=== PATIENT | male | born 1995 | race Caucasian/White ===

== ENCOUNTER 2022-05-06 22:44 | Emergency (ER) | payer BC, SELFPAY ==
--- NOTE | ~2022-05-06 | CT_ITS ---
EXAMINATION: CT abdomen pelvis w con DATE: 05/07/2022 05:17 INDICATION: Right upper quadrant abdominal pain. Hepatic mass. TECHNIQUE: Computed tomography (CT) of the abdomen and pelvis was performed with 100 mL Omnipaque-350 intravenous contrast. Automated exposure control and iterative reconstruction technique were employe d. The dose-length product was 1465.00 mGy-cm. COMPARISON: 05/07/2022 at 2:48 AM FINDINGS: Lung bases are clear. Heart size is normal. No pericardial or pleural effusion. 1.8 cm low-attenuatio n likely hepatic cyst near the confluence of the patent hepatic veins and inferior vena cava. Gallbla dder, spleen, pancreas and bilateral adrenal glands are normal. 3 mm stone at the right ureteropelvic junction with mild right hydronephrosis. No other urolithiasis. There are couple bilateral nonenhanc ing renal cysts measuring up to 1 cm in maximal diameter at the right kidney. Bowels including the ap pendix are normal. Bladder is normal. No free intraperitoneal gas or fluid. No pathologically enlarge d abdominal or pelvic lymphadenopathy. Lumbar and lower thoracic spondylosis bone island at the intra trochanteric right femur. IMPRESSION: 1. 3 mm at least partially obstructing stone at the right ureteropelvic junction with mild right hydr onephrosis. 2. 1.8 cm at the hepatic cyst near the confluence of the patent hepatic veins and inferior vena cava. Reviewed, dictated and finalized at location A. IMPRESSION: 1. 3 mm at least partially obstructing stone at the right ureteropelvic junctio n with mild right hydronephrosis. 2. 1.8 cm at the hepatic cyst near the confluence of the patent hepatic veins a nd inferior vena cava.
--- NOTE | ~2022-05-06 | CT_ITS ---
EXAMINATION: CT abdomen pelvis wo con DATE: 05/07/2022 03:04 INDICATION: Right flank pain. Right abdominal pain. TECHNIQUE: Computed tomography (CT) of the abdomen and pelvis was performed without intravenous contr ast. Automated exposure control and iterative reconstruction technique were employed. The dose-length product was 656.92 mGy-cm. COMPARISON: None FINDINGS: Lung bases are clear. Arch size is normal. No pericardial or pleural effusion. 1.9 cm fluid attenuati on cyst at the dome of the liver near the confluence of the hepatic veins and inferior vena cava. Gal lbladder, spleen, pancreas, bilateral adrenal glands and left kidney are normal. At least partially o bstructing 3 mm stone at the right ureteropelvic junction with mild right hydronephrosis. Bowels incl uding the appendix are normal. Bladder is normal. No free intraperitoneal gas or fluid. No pathologic ally enlarged abdominal or pelvic lymphadenopathy. Mild thoracolumbar spondylosis. Bone island at the proximal right femur. IMPRESSION: 1. At least partially obstructing 3 mm stone at the right ureteropelvic junction with mild right hydr onephrosis. Reviewed, dictated and finalized at location A. IMPRESSION: 1. At least partially obstructing 3 mm stone at the right ureteropelvic junctio n with mild right hydronephrosis.
[2022-05-06 22:52] VITALS: BP 154/78; PULSE 68; RESP 20; TEMP 36.9; O2SAT 100
[2022-05-07 01:44] LABS: Add Urine Microscopic? YES; Appearance Urine Cloudy (Clear); Bacteria Urine Trace /hpf; Bilirubin Urine Negative (Negative); Blood Urine 3+ (Negative); Calcium Oxalate Crystals Urine Present /hpf; Color Urine Amber (Yellow); Glucose Urine UA Negative (Negative); Ketones Urine Negative (Negative); Leukocyte Esterase Ur Negative LEU/UL (Negative); Mucus Urine Heavy /lpf; Nitrate Urine Negative (Negative); Protein Urine 1+ mg/dL (Negative); RBC Urine >75 /hpf (0-2); Specific Grav Ur 1.025 (1.001-1.035)
--- NOTE | 2022-05-07 01:50 | ED.BACK ---
HPI - Back Pain/Injury General Chief Complaint: Back Pain/Injury <Zhen George APRN - Last Filed: 05/07/22 01:54> Stated Complaint: back pain <Zhen George APRN - Last Filed: 05/07/22 01:54> Time Seen by Provider: 05/07/22 00:45 <Zhen George APRN - Last Filed: 05/07/22 01:54> Source: patient <Zhen George APRN - Last Filed: 05/07/22 01:54> Mode of arrival: ambulatory <Zhen George APRN - Last Filed: 05/07/22 01:54> Limitations: no limitations <Zhen George APRN - Last Filed: 05/07/22 01:54> History of Present Illness HPI Narrative: Presents complaints of right flank pain that radiates into right lower abdomen x1 hour. Reports history of kidney stones but states that the pain is not as severe as prior kidney stones. Denies fever, nausea, vomiting or other symptoms at this time. States urinating without difficulty but urine is darker than usual. <Zhen George APRN - Last Filed: 05/07/22 01:54> Related Data Allergies/Adverse Reactions: Allergies Allergy/AdvReac Type Severity Reaction Status Date / Time No Known Allergies Allergy Verified 05/07/22 06:58 <Zhen George APRN - Last Filed: 05/07/22 01:54> Review of Systems Review of Systems: CONSTITUTIONAL: Denies fever, chills, or sweats. EYES: Denies visual changes, redness, or discharge. ENT: Denies rhinorrhea, congestion, sore throat, or otalgia. CARDIOVASCULAR: Denies chest pain, palpitations, or edema. RESPIRATORY: Denies cough or dyspnea. GASTROINTESTINAL: Right flank pain with radiation into right lower abdomen. Denies nausea, vomiting. GENITOURINARY: Denies dysuria or hematuria. SKIN: Denies rash or itching. MUSCULOSKELETAL: Denies back pain, joint pain, or myalgia. NEUROLOGIC: Denies headache, numbness, or weakness. PSYCHIATRIC: Denies anxiety or depression. <Zhen George APRN - Last Filed: 05/07/22 01:54> [facility] Past Medical History Medical History: Medical History (Updated 05/07/22 @ 06:59 by Hiro Montoya MD) Kidney stone <Zhen George, DISTRIBUTION COLLECTION OPERATOR - Last Filed: 05/07/22 01:54> Exam Narrative: GENERAL: Well-appearing, well-nourished, and in no acute distress. HEAD: Normocephalic, atraumatic. EYES: PERRLA and EOMI. ENT: Nares clear, no rhinorrhea or epistaxis. Mucous membranes moist. NECK: Supple. CHEST: Clear to auscultation. No respiratory distress. HEART: Regular rate and rhythm. No murmur heard. Normal peripheral pulses. ABDOMEN: Right flank, right lower back order clerk to palpation, mildly. Slightly tender to palpation right lower quadrant abdomen. EXTREMITIES: Normal range of motion. No edema. SKIN: Warm, dry, no rash. NEURO: No focal deficits. Alert and oriented x3. PSYCH: Normal mood and affect. <Zhen George, DISTRIBUTION COLLECTION OPERATOR - Last Filed: 05/07/22 01:54> Course Course Emergency Course: 06:56 - Patient signed out to me by KRISTA George. Noncontrast CT shows a 3 mm stone and is concerning for a hepatic cyst versus potential blood clot. Radiology recommends a CT with contrast. CT with contrast not concerning for blood clot of the liver. Will discharge with tamsulosin and urology follow-up. Discussed return emergency precautions including signs/symptoms of intractable vomiting and acute abdomen. The patient voiced understanding is comfortable with the plan. All questions answered to his satisfaction. <Hiro Montoya MD - Last Filed: 05/08/22 02:41> Vital Signs Vital signs: Vital Signs Temperature 98.4 F 05/06/22 22:52 Pulse Rate 68 05/06/22 22:52 Respiratory Rate 20 05/06/22 22:52 Blood Pressure 154/78 H 05/06/22 22:52 Pulse Oximetry 100 05/06/22 22:52 Oxygen Delivery Room Air 05/06/22 22:52 Temperature 98.4 F 05/06/22 22:52 Pulse Rate 63 05/07/22 07:09 Respiratory Rate 16 05/07/22 07:09 Blood Pressure 129/71 05/07/22 07:09 Pulse Oximetry 100 05/07/22 07:09 Oxygen Delivery Room Air 05/06/22
--- NOTE | 2022-05-07 03:18 | PC.NURSE ---
Notifed Tyler VELASCO pt refusing IV fluids and Toradol at this time
[2022-05-07 03:42] LABS: Basophils Percent Auto 0.3 % (0.2-1.2); Eosinophils Percent Auto 0.1 % (0-4.4); Hematocrit 42.9 % (42.0-52.0); Hemoglobin 14.8 g/dL (14.0-18.0); Immature Granulocyte Absolute 0.02 K/mm3 (0.00-0.031); Immature Granulocyte Percent A 0.2 % (0-0.5); Lymphocytes Absolute Auto 0.89 K/mm3 (0.9-3.2); Lymphocytes Percent Auto 10.3 % (18.3-44.2); Mean Corpuscular HGB Conc 34.5 g/dl (32-36); Mean Corpuscular Hemoglobin 30.3 pg (26-34); Mean Corpuscular Volume 87.9 fl (80-100); Mean Platelet Volume 9.9 fl (7.4-10.4); Monocytes Absolute Auto 0.3 K/mm3 (0.1-0.6); Monocytes Percent Auto 2.9 % (2.6-8.5); Neutrophils Absolute Auto 7.5 K/mm3 (1.3-6.7); Neutrophils Percent Auto 86.2 % (45.5-73.1); Platelet Count Result 278 k/mm3 (150-375); Red Blood Count 4.88 M/mm3 (4.6-6.20); Red Cell Distribution Width 12.5 % (11.5-14.5); White Blood Count 8.7 K/mm3 (4.5-10.0)
[2022-05-07 03:52] LABS: Alanine Aminotransferase 46 U/L (6-50); Albumin Level 4.5 g/dL (3.5-5.1); Alkaline Phosphatase 100 U/L (38-126); Anion Gap 9 mmol/L (8-16); Aspartate Amino Transferase 31 U/L (17-59); Bilirubin,Total 0.6 mg/dL (0.2-1.3); Blood Urea Nitrogen 13 mg/dL (9-20); Calcium 9.4 mg/dL (8.4-10.2); Carbon Dioxide 27 mmol/L (22-30); Chloride 105 mmol/L (98-107); Estimated CRCL calculation 115 ml/min; Estimated Glomerular Filt Rate > 60; Glucose 133 mg/dL (65-110); Potassium 4.2 mmol/L (3.4-5.0); Sodium 141 mmol/L (137-145)
[2022-05-07 04:15] VITALS: BP 124/86; PULSE 96; RESP 20; O2SAT 97
[2022-05-07 06:27] VITALS: BP 120/76; PULSE 80; RESP 16; O2SAT 99
[2022-05-07 07:09] VITALS: BP 129/71; PULSE 63; RESP 16; O2SAT 100
== END 2022-05-07 07:09 | disposition home or self-care (01) ==
PROVIDERS: Nurse Practitioner; Emergency Provider Preventive Medicine Aerospace Medicine
DX: N13.2 Hydronephrosis with renal and ureteral calculous obstruction (principal); Z87.442 Personal history of urinary calculi
CPT/HCPCS: 36415; 74176; 74177; 74178; 80053; 81001; 85025; 87086; 99284; Q9967